=== PATIENT | female | born 1975 | race Caucasian/White ===

== ENCOUNTER 2023-04-05 14:11 | Outpatient (CLI) | payer OTHER ==
[2023-04-05 18:08] LABS: CALCIUM 10.5 mg/dL (8.5-10.3)
== END 2023-04-05 14:12 | disposition home or self-care (01) ==
LOC: LAB.N 14:11
PROVIDERS: ATTEND Nurse Practitioner
DX: E83.52 Hypercalcemia (principal)
CPT/HCPCS: 36415; 81599; 82310; 82330; 83970